=== PATIENT | male | born 2000 | race American Indian/Alaskan Native ===

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

== ENCOUNTER 2022-09-12 16:02 | Emergency (ER) | payer MEDICAID ==
[2022-09-12] MEDS ORDERED: Amoxicillin/Clavulanate K 875-125 MG Tab PO ONE (16:03)
[2022-09-12 16:24] VITALS: BP 132/87; PULSE 117
[2022-09-12] MEDS: Fluorescein 1 MG Ophth Strip EYELF ONE (16:42)
[2022-09-12] MEDS: Diphtheria,Pertussis(Acell),Tetanus Vaccine 0.5 ML Syringe IM ONE (16:42)
[2022-09-12] MEDS: MVI, Adult with Vitamin K 10 ML, Thiamine 100 MG, Folic Acid 1 MG in Lactated Ringers 1... IV ONE ×4 (17:04)
[2022-09-12] MEDS: Amoxicillin/Clavulanate K 875-125 MG Tab PO ONE (17:36)
[2022-09-12] MEDS: Amoxicillin/Clavulanate K 875-125 MG Tab ONE (17:36)
[2022-09-12] MEDS: Gentamicin 0.3% Ophth Soln 5 ML Bottle EYEBOTH SCH (17:44)
[2022-09-12] MEDS: Gentamicin 0.3% Ophth Soln 5 ML Bottle ONE (17:44)
[2022-09-12] MEDS ORDERED: Gentamicin 0.3% Ophth Soln 5 ML Bottle EYELF SCH (21:00)
== END 2022-09-12 17:45 | disposition home or self-care (01) ==
LOC: DL.ED 16:02
DX: S01.152A Open bite of left eyelid and periocular area, initial encounter (principal); F10.239 Alcohol dependence with withdrawal, unspecified; Z23 Encounter for immunization; W54.0XXA Bitten by dog, initial encounter
CPT/HCPCS: 90471; 90715; 96365; 99283; A9270; J3411; J7120; J3490

== ENCOUNTER 2023-02-24 14:56 | Emergency (ER) | payer MEDICAID, OTHER ==
[2023-02-24 15:23] VITALS: BP 128/99; PULSE 133
[2023-02-24 16:06] LABS: ANION GAP 20.6 mEq/L (7-13)
[2023-02-24 16:11] LABS: AMPHETAMINES,URINE NEGATIVE (NEGATIVE); BARBITURATES,URINE NEGATIVE (NEGATIVE); BENZODIAZEPINE,URINE NEGATIVE (NEGATIVE); MDMA (ECSTASY), URINE NEGATIVE (NEGATIVE); METHADONE,URINE NEGATIVE (NEGATIVE); METHAMPHETAMINES,URINE NEGATIVE (NEGATIVE); OPIATES,URINE NEGATIVE (NEGATIVE); OXYCODONE,URINE NEGATIVE (NEGATIVE); PHENCYCLIDINE,URINE NEGATIVE (NEGATIVE); TCA,URINE NEGATIVE (NEGATIVE)
[2023-02-24 16:26] LABS: PTT,PARTIAL THROMBOPLSTIN TIME 26.7 SEC (22.0-34.0)
[2023-02-24 16:37] LABS: CORONAVIRUS COVID-19 NAA NEGATIVE (NEGATIVE); RESPIRATORY SYNCYTIAL VIR NAA NEGATIVE (NEGATIVE)
== END 2023-02-24 18:06 ==
LOC: DL.ED 14:56
DX: F32.A Depression, unspecified (principal); F10.10 Alcohol abuse, uncomplicated; F12.10 Cannabis abuse, uncomplicated; Z20.822 Contact with and (suspected) exposure to COVID-19
CPT/HCPCS: 0241U; 36415; 80053; 80143; 80179; 80305-QW; 80307; 81001; 83735; 84443; 85025; 85610; 85730; 99285